=== PATIENT | female | born 1965 | race Caucasian/White ===

== ENCOUNTER 2017-11-20 11:35 | Emergency (ER) | payer OTHER ==
[~2017-11-20] VITALS: Ht 160 cm; Wt 83.9 kg
[2017-11-20 12:13] LABS: ABSOLUTE BASOPHIL COUNT 0.1 /CUMM (0.0-0.2); ABSOLUTE EOSINOPHIL COUNT 0.1 /CUMM (0.0-0.7); ABSOLUTE GRANULOCYTE CT 8.9 /CUMM (1.4-6.5); ABSOLUTE LYMPH COUNT 3.7 /CUMM (1.2-3.4); ABSOLUTE MONOCYTE COUNT 1.1 /CUMM (0.10-0.60); BASOPHIL % 0.4 % (0.0-2.0); EOSINOPHIL % 0.6 % (0-5); GRANULOCYTE % 64.5 % (42.2-75.2); HEMATOCRIT 45.2 % (37-47); MEAN CORPUSCULAR HGB 28.5 PG (27.0-31.0); MEAN CORPUSCULAR HGB CONC 33.6 G/DL (33.0-37.0); MEAN CORPUSCULAR VOLUME 84.7 FL (81.0-99.0); MEAN PLATELET VOLUME 7.6 FL (7.4-10.4); PLATELET COUNT 374 /CUMM (130-400); RBC DISTRIBUTION WIDTH 13.8 % (11.5-14.5); RED BLOOD CELL CT 5.34 /CUMM (4.20-5.40); WHITE BLOOD CELL COUNT 13.8 /CUMM (4.8-10.8)
[2017-11-20 13:52] VITALS: BP 140/85
--- NOTE | 2017-11-20 13:56 | ED GI/GU/ABDOMINAL COMPLAINT ---
History of Present Illness General Chief Complaint: Abdominal Pain/Flank Pain Stated Complaint: [facility] Source: patient Exam Limitations: no limitations Vital Signs & Intake/Output Vital Signs & Intake/Output Vital Signs Date Time Temp Pulse Resp B/P B/P Pulse O2 O2 Flow FiO2 Mean Ox Delivery Rate 11/20 1436 96 Room Air 11/20 1352 98.6 80 20 140/85 98 Room Air 11/20 1156 97.5 83 20 133/80 96 Room Air Allergies Coded Allergies: sulfamethoxazole (From BACTRIM) (Intermediate, RASH 11/20/17) trimethoprim (From BACTRIM) (Intermediate, RASH 11/20/17) hydroxychloroquine (RASH 11/20/17) Reconcile Medications Calcium Carbonate/Vitamin D3 (Calcium 500 + D Tablet) (Unknown Strength) TABLET (Unknown Dose) PO DAILY SUPPLEMENT (Reported) Ciprofloxacin HCl (Cipro) 500 MG TABLET 1 TAB PO BID Diverticulitis Lorazepam 0.5 MG TABLET 1 TAB PO PRN ANXIETY (Reported) Metformin HCl (Metformin HCl ER) 500 MG TAB.ER.24H 1 TAB PO BID DM (Reported) Metronidazole (Flagyl) 500 MG TABLET 1 TAB PO TID Diverticulitis Sertraline HCl 50 MG TABLET 1 TAB PO DAILY MENTAL HEALTH (Reported) Triage Note: SENT FROM [facility]: ? DIVERTIUCLITIS. C/O LLQ ABDOMINAL PAIN SINCE YESTERDAY. DENIES FEVER, NAUSEA OR VOMTING. Triage Nurses Notes Reviewed? yes ? N Is pt currently ? No HPI: Pt is a 52 y/o F PMHx hypothyroid, prediabetes, s/p cholecystectomy in 2007, fibromyalgia presenting with left-sided abdominal pain x 1 day. Pt woke up yesterday morning feeling a "twinge" in the LLQ. Pt states pain is constant and radiates the her left flank. Pt thought she needed to move her bowels, so she took a stool softener. Pt then had one episode of loose stool. Pt went to the walk-in center and had an x-ray that showed colonic inflammation. Pt denies fevers, chills, diaphoresis, N/V/C, dysuria, hematuria, polyuria, hematochezia, recent travel, change in diet, dyspepsia, cp, palpitations, SOB (Dale SHELLClark) Past History Travel History Traveled to [place] past 21 day No Medical History Any Pertinent Medical History? see below for history Endocrine: Moses's thyroiditis, PRE DIABETES Surgical History Surgical History: cholecystectomy (2008) Psychosocial History What is your primary language Amharic Tobacco Use: Never used ETOH Use: occasional use Family History Hx Contributory? No (Clark Hunter PA-C) Review of Systems Review of Systems Constitutional: Denies: see HPI. Respiratory: Denies: see HPI. Cardiovascular: Denies: see HPI. GI: Reports: abdominal pain, diarrhea, distention. Denies: constipation, bowel incontinence, melena, nausea, bloody stool, vomiting. Genitourinary: Denies: see HPI. Hematologic/Endocrine: Denies: see HPI. All Other Systems: Reviewed and Negative (Clark Hunter PA-C) Physical Exam Physical Exam General Appearance: well developed/nourished, no apparent distress, alert Head: atraumatic, normal appearance Eyes: Bilateral: normal appearance. Ears, Nose, Throat, Mouth: moist mucous membrane Neck: normal inspection, supple, full range of motion Respiratory: normal breath sounds, chest non-tender, lungs clear Cardiovascular: regular rate/rhythm Gastrointestinal: normal bowel sounds, soft, no organomegaly, distention, Tender to palpation of LUQ and LUQ, No CVA tenderness Extremities: normal range of motion Skin: intact, normal color, warm/dry Core Measures ACS in differential dx? No Sepsis Present: No Sepsis Focused Exam Completed? Yes (Clark Hunter PA-C) Progress Differential Diagnosis: AAA, bowel obstruction, colon cancer, diverticulitis, gastritis, hernia, ischemic bowel, inflamm bowel dis, kidney stone, PID/ cervicitis, SBO, UTI/pyelo Plan of Care: Orders Procedure Date/time Status Add-on Test (ER Only) 11/20 1208 Active EKG 11/20 1208 Active TROPONIN LEVEL 11/20 1205 Complete URINALYSIS 11/20 1153 Complete LIPASE 11/20 1153 Complete COMPREHENSIVE METABOLIC PANEL 11/20 1153 Complete CBC WITHOUT DIFFERENTIAL 11/20 1153 Complete Laboratory Tests 11/20/17 1400: Urine Color YEL, Urine Clarity CLEAR, Urine pH 6.5, Ur Specific [place] <= 1.005 , Urine Protein TRACE H, Urine Ketones TRACE H, Urine Nitrite NEG, Urine Bilirubin NEG, Urine Urobilinogen 0.2, Ur Leukocyte Esterase NEG, Ur Microscopic SEDIMENT EXAMINED, Urine RBC RARE, Urine WBC RARE, Ur Epithelial Cells FEW, Urine Hemoglobin TRACE-LYSED, Urine Glucose NEG 11/20/17 1205: Anion Gap 12, Estimated GFR > 60, BUN/Creatinine Ratio 18.3, Glucose 98, Calcium 10.0, Total Bilirubin 0.8, AST 21, ALT 34, Alkaline Phosphatase 100, Troponin I < 0.01, Total Protein 7.7, Albumin 4.4, Globulin 3.3, Albumin/Globulin Ratio 1.3 , Lipase 214, CBC w Diff NO MAN DIFF REQ, RBC 5.34, MCV 84.7, MCH 28.5, MCHC 33.6, RDW 13.8, MPV 7.6, Gran % 64.5, Lymphocytes % 26.8, Monocytes % 7.7, Eosinophils % 0.6, Basophils % 0.4, Absolute Granulocytes 8.9 H, Absolute Lymphocytes 3.7 H, Absolute Monocytes 1.1 H, Absolute Eosinophils 0.1, Absolute Basophils 0.1 Diagnostic Imaging: Viewed by Me: CT Scan. Discussed w/RAD: CT Scan. Radiology Impression: PATIENT: HELLEN RYAN PRESENT AGE: 52 PATIENT ACCOUNT NO: [id number] : 65 LOCATION: [facility] ORDERING PHYSICIAN: Gege DRIVER SERVICE DATE: 11/20/17 EXAM TYPE: CAT - CT ABD & PELVIS W IV CONTRAST EXAMINATION: CT ABDOMEN AND PELVIS WITH CONTRAST CLINICAL INFORMATION: Left lower quadrant pain. Rule out diverticulitis, colitis , hydronephrosis. COMPARISON: CTA of the chest dated 10/31/2006. TECHNIQUE: Multidetector CT volumetric acquisition of the abdomen and pelvis was performed after the administration of 95 and mL of intravenous Optiray 320. The data set was reformatted in the sagittal and coronal planes and reviewed on an independent workstation. DLP: 557.21 mGy-cm. FINDINGS: LOWER CHEST: Included lung bases unremarkable. LIVER, GALLBLADDER, BILIARY TREE: Liver normal size and attenuation. There is a 1.0 x 0.5 cm low-attenuation mass in hepatic segment 6 ( series 2, image 23), too small to further characterize. No additional hepatic masses aren't seen. Liver surface contour is slightly nodular. No intra-or extrahepatic ductal dilatation. Hepatic and portal veins patent. Gallbladder is surgically absent with post cholecystectomy carli seen in place. PANCREAS: Normal. No ductal dilatation, mass, or surrounding stranding. SPLEEN: Normal size and appearance. There is a 0.7 cm accessory splenule along the anterior margin of the splenic hilum (series 2, image 21) . Splenic vein patent. ADRENAL GLANDS AND KIDNEYS: Adrenal glands normal. Kidneys bilaterally symmetric in size and function. No focal mass, hydronephrosis, nephrolithiasis or perinephric stranding. URETERS AND BLADDER: Ureters decompressed and within normal limits. Bladder partially distended and within normal limits. PELVIC ORGANS: Unremarkable. GASTROINTESTINAL TRACT: There is an approximately 6 cm long segment of the distal descending colon, which is abnormally circumferentially thickened with mild bowel wall edema and surrounding mesenteric fat infiltration and edema is seen. This is in region of diverticulosis and is most consistent with a focal segmental diverticulitis. No evidence of bowel obstruction or perforation is seen and no abscess formation is noted. There are other scattered colonic diverticula are seen throughout the transverse, descending and sigmoid colon. Small bowel loops decompressed and unremarkable. Appendix in right lower quadrant normal. LYMPHOVASCULAR STRUCTURES: Abdominal aorta normal in caliber. No periaortic collections. No abdominal or pelvic adenopathy or free fluid collection. BONES: Within normal limits. IMPRESSION: 1. Findings consistent with acute segmental diverticulitis of the distal descending colon. No evidence of bowel perforation or obstruction or mesenteric abscess formation. Recommend follow-up imaging post contrast to document resolution of findings. 2. Incidental 1.0 x 0.5 cm low-attenuation mass in hepatic segment 6, too small to be further characterized this was not included in the [id number] of the prior CTA of the chest. If the patient has no underlying risk factors and if this finding is truly an incidental, this mass is most likely to be benign and no further follow-up is recommended. The ACR criteria. However, if the patient is symptomatic or at high risk, further assessment with MRI scan is recommended for characterization and assessment. 3. Status post cholecystectomy with no evidence of biliary dilatation. DICTATED BY: Zulma Gil MD DATE/TIME DICTATED:11/20/171404 MAIL ORDER SORTER:MARCOS DATE/TIME TRANSCRIBED:1404 CONFIDENTIAL, DO NOT COPY WITHOUT APPROPRIATE AUTHORIZATION. < Electronically signed in Other Vendor System> SIGNED BY: Zulma Gil MD 11/20/17 1431 Initial ED EKG: Normal sinus rhythm at 70 bpm, no ischemic changes. Prior EKG: unchanged Comments: Patient is a 52-year-old female presenting with left lower quadrant abdominal pain 1 day. On exam she does have left lower quadrant abdominal tenderness. She has no nausea or vomiting. She is tolerating p.o. She is overall well appearing on exam. She does have an elevated white count of 13.8. Otherwise lab work is nonactionable. CT scan shows acute sigmoid diverticulitis without evidence of perforation, obstruction or abscess. Patient will be treated for this as an outpatient with Carlos and Risa. Will follow up with the PCP as well as GI this week. She does not want anything for pain as she has Tylenol and Motrin at home she can take. She is in agreement with plan of care. All questions answered. Encouraged patient to return to the emergency department immediately any new worsening symptoms. (Dale SHELL,Clark) Departure Departure Time of Disposition: 1441 Disposition: HOME OR SELF CARE Condition: Stable Clinical Impression Primary Impression: Acute diverticulitis Referrals: Talia ESCOBAR,Didier Kelley MD,Tera (PCP/Family) Additional Instructions: Please go over all results of today's visit with your primary care doctor. Contact your primary care doctor to let them know you were here in the emergency room. There may be nonspecific findings which may not be related to your visit today here in the emergency room but may require further evaluation and chronic monitoring by your primary care doctor. If you had a laceration today the chance of foreign body always remains. You should follow-up with your primary care doctor for recheck in 3-5 days for a wound check. If you had an x-ray done there is a chance that a fracture could have been missed on initial read and you should follow-up with your primary care doctor for repeat x-rays if symptoms persist. If your blood pressure was elevated here in the emergency room please have rechecked by the [facility] primary care doctor within the next 48. If you were prescribed a narcotic here in the emergency room or any type of controlled substances you're not allowed to drive while taking this medication or operate any type of heavy machinery. Narcotics can make you feel lightheaded dizziness nausea and can cause constipation. You may need to pick remover a stool softener. Thank you for choosing [facility] emergency room. Please return to the emergency room immediately if you have any other concerns worsening of symptoms. Departure Forms: Customer Survey General Discharge Information Prescriptions: Current Visit Scripts Ciprofloxacin HCl (Cipro) 1 TAB PO BID #20 TAB Metronidazole (Flagyl) 1 TAB PO TID #30 TAB (Clark Hunter PA-C) PA/CHANGE PERSON Co-Sign Statement Statement: ED Attending supervision documentation- [] I saw and evaluated the patient. I have also reviewed all the pertinent lab results and diagnostic results. I agree with the findings and the plan of care as documented in the PA's/CHANGE PERSON's documentation. [X] I have reviewed the ED Record and agree with the PA's/CHANGE PERSON's documentation. [] Additions or exceptions (if any) to the PAs/CHANGE PERSON's note and plan are summarized below: [] (Marie ESCOBAR,Betito Underwood)
--- NOTE | 2017-11-20 14:31 | CT SCAN REPORT ---
EXAMINATION: CT ABDOMEN AND PELVIS WITH CONTRAST CLINICAL INFORMATION: Left lower quadrant pain. Rule out diverticulitis, colitis, hydronephrosis. COMPARISON: CTA of the chest dated 10/31/2006. TECHNIQUE: Multidetector CT volumetric acquisition of the abdomen and pelvis was performed after the administration of 95 and mL of intravenous Optiray 320. The data set was reformatted in the sagittal and coronal planes and reviewed on an independent workstation. DLP: 557.21 mGy-cm. FINDINGS: LOWER CHEST: Included lung bases unremarkable. LIVER, GALLBLADDER, BILIARY TREE: Liver normal size and attenuation. There is a 1.0 x 0.5 cm low-attenuation mass in hepatic segment 6 (series 2, image 23), too small to further characterize. No additional hepatic masses aren't seen. Liver surface contour is slightly nodular. No intra-or extrahepatic ductal dilatation. Hepatic and portal veins patent. Gallbladder is surgically absent with post cholecystectomy carli seen in place. PANCREAS: Normal. No ductal dilatation, mass, or surrounding stranding. SPLEEN: Normal size and appearance. There is a 0.7 cm accessory splenule along the anterior margin of the splenic hilum (series 2, image 21) . Splenic vein patent. ADRENAL GLANDS AND KIDNEYS: Adrenal glands normal. Kidneys bilaterally symmetric in size and function. No focal mass, hydronephrosis, nephrolithiasis or perinephric stranding. URETERS AND BLADDER: Ureters decompressed and within normal limits. Bladder partially distended and within normal limits. PELVIC ORGANS: Unremarkable. GASTROINTESTINAL TRACT: There is an approximately 6 cm long segment of the distal descending colon, which is abnormally circumferentially thickened with mild bowel wall edema and surrounding mesenteric fat infiltration and edema is seen. This is in region of diverticulosis and is most consistent with a focal segmental diverticulitis. No evidence of bowel obstruction or perforation is seen and no abscess formation is noted. There are other scattered colonic diverticula are seen throughout the transverse, descending and sigmoid colon. Small bowel loops decompressed and unremarkable. Appendix in right lower quadrant normal. LYMPHOVASCULAR STRUCTURES: Abdominal aorta normal in caliber. No periaortic collections. No abdominal or pelvic adenopathy or free fluid collection. BONES: Within normal limits. IMPRESSION: 1. Findings consistent with acute segmental diverticulitis of the distal descending colon. No evidence of bowel perforation or obstruction or mesenteric abscess formation. Recommend follow-up imaging post contrast to document resolution of findings. 2. Incidental 1.0 x 0.5 cm low-attenuation mass in hepatic segment 6, too small to be further characterized this was not included in the [id number] of the prior CTA of the chest. If the patient has no underlying risk factors and if this finding is truly an incidental, this mass is most likely to be benign and no further follow-up is recommended. The ACR criteria. However, if the patient is symptomatic or at high risk, further assessment with MRI scan is recommended for characterization and assessment. 3. Status post cholecystectomy with no evidence of biliary dilatation.
[2017-11-20] MEDS ORDERED: FLAGYL500 MG PO (14:45)
[2017-11-20] MEDS ORDERED: CIPRO500 M1 PO (14:45)
[2017-11-20] MEDS ORDERED: SERTRALINE HCL50 MG PO (14:54)
[2017-11-20] MEDS ORDERED: LORAZEPAM0.5 M1 PO (14:54)
[2017-11-20] MEDS ORDERED: METFORMIN HCL500 M4 PO (14:54)
[2017-11-20] MEDS ORDERED: CALCIUM 500 +1 EAC5 PO (14:55)
== END 2017-11-20 15:10 ==
LOC: ERH 11:35
PROVIDERS: Physician Assistant
DX: K57.92 Diverticulitis of intestine, part unspecified, without perforation or abscess without bleeding (principal)
CPT/HCPCS: 74177; 81001; 93005; 93010